=== PATIENT | male | born 1970 | race Caucasian/White ===

== ENCOUNTER → 2017-10-25 11:56 | Outpatient (CLI) | payer OTHER, SELFPAY ==
[2017-10-25 13:56] LABS: Anion Gap 7 (5-15); BUN 9 mg/dL (7-18); BUN/Creat Ratio 7.4 RATIO (10-20); Calcium,Total 8.8 mg/dL (8.5-10.1); Chloride 108 mmol/L (98-107); Cholesterol 217 mg/dL (200); Creatinine, Serum 1.22 mg/dL (0.70-1.30); EST Glomerular Filtration Rate 67 mL/min (>60); Est Glom Filt Rate - Afr Amer 81 mL/min (>60); Glucose 85 mg/dL (74-106); High Density Lipoprotein 40 mg/dL; Potassium 4.1 mmol/L (3.5-5.1); Sodium Level 141 mmol/L (136-145); Triglycerides 131 mg/dL; Very Low Density Lipoprotein 26 mg/dL (5-40)
== END ==
PROVIDERS: Family Provider Family Medicine; PCP Family Medicine; Visit Provider Family Medicine
DX: R07.9 Chest pain, unspecified (principal); Z12.5 Encounter for screening for malignant neoplasm of prostate
CPT/HCPCS: 36415; 80048; 80061; 84153; G0103

== ENCOUNTER 2018-01-28 04:04 | Emergency (ER) | payer OTHER, SELFPAY ==
[2018-01-28 04:05] VITALS: BP 163/121; PULSE 97; RESP 19; TEMP 36.6; O2SAT 100; BMI 29.7
--- NOTE | 2018-01-28 04:16 | EKG12_ITS ---
Test Reason : CP Blood Pressure : / mmHG Vent. Rate : 084 BPM Atrial Rate : 084 BPM P-R Int : 160 ms QRS Dur : 102 ms QT Int : 374 ms P-R-T Axes : 044 056 073 degrees QTc Int : 441 ms Normal sinus rhythm Normal ECG Confirmed by FANTASMA JOYNER MD ([id number]), editor in chief BEVERLY MENDEZ ([id number]) on 02/01/2018 4:16:24 PM Referred By: GARO Confirmed By:FANTASMA JOYNER MD
[2018-01-28 04:18] VITALS: O2SAT 100
--- NOTE | 2018-01-28 04:18 | ED.VISSUMM ---
- ER Visit Summary Date of Service: 01/28/18 Chief Complaint: [] Chest pain History of Present Illness: The patient is a 47 M with chest pain for the last hour woke him up from sleep continuous waxes and wanes stabbing pain in the right chest. He feels that his low back occasionally. Current severity is moderate. No home treatment. Associated with sick intermittent nausea. No previous stress test or cath. No cardiovascular PE or dissection risk factors. He takes no medications. Physical Examination: Vital signs reviewed General: Well-nourished well-developed Head: Normocephalic atraumatic Eyes: Pupils equal round and reactive to light extraocular movements intact ENT: TMs clear no hemotympanum no trauma Neck: Nontender full range of motion Cardiovascular: Regular rate rhythm no murmurs normal S1-S2 Respiratory: No distress clear to auscultation bilaterally chest nontender Abdomen: Soft nontender nondistended normal bowel sounds no masses Back: Nontender no CVA tenderness Extremities: Nontender active range of motion ?4 extremities no trauma Skin: Normal color no trauma Neuro alert oriented cranial nerves II through XII intact normal strength sensation reflexes Test Results: [] Emergency Department Course and Treatment: [] EKG shows sinus 84 no ischemia. Chest x-ray and lab work obtained. Patient given oral aspirin IV Zofran and morphine for his symptoms. On reevaluation his pain is gone. Chest x-ray CT Rozina of the chest and lab work including troponin are negative. Liver function tests lipase negative. This could be gallbladder related however will obtain a CT I do not see any stones but can only see the upper half of the gallbladder. He does not have a PE or dissection. I do not think it is cardiac related. I do not think he needs a second troponin. He will follow-up as an outpatient. He will avoid fatty foods. He will return if he worsens. Treatment Plan: [] Disposition: [] Impression: [] Right lower chest pain This note was generated with [employer] dictation software. It may contain incorrect words, spelling, and punctuation that were not noted in review of the chart prior to signing ED Disposition - Plan for ED Patient: Chief Complaint: Chest Pain Referrals: Michael Garcia MD [Primary Care Provider] -
--- NOTE | 2018-01-28 04:19 | NURSING ---
NO OLD EKG TO OBTAIN
[2018-01-28] MEDS: Aspirin 81 MG TAB.CHEW 324 MG PO (04:22)
[2018-01-28] MEDS: morphine 8 MG/ML Syringe IV (04:23)
[2018-01-28] MEDS: Ondansetron 4 MG/2 ML Vial IV (04:25)
[2018-01-28 04:33] LABS: Absolute Lymphocyte Count 1.42 X10^3/ul (0.83-4.51); Absolute Neutrophil Count 6.4 X10^3/uL (2.0-7.7); Basophil# 0.01 X10^3/uL; Basophil% 0.1 % (0-1); Eosinophil# 0.12 X10^3/uL; Eosinophils% 1.4 % (0-5); Hematocrit 45.8 % (40-54); Hemoglobin 15.5 g/dl (13.0-16.5); Lymphocyte # 1.42 X10^3/ul (4.0); Lymphocyte % 16.6 % (19-41); Mean Corp Hgb Conc 33.8 g/gl (32-36); Mean Corpuscular Hgb 29.9 pg (27.0-32.0); Mean Corpuscular Volume 88.4 fL (80-94); Mean Platelet Vol. 11.5 fl (6.2-12.0); Monocyte# 0.56 X10^3/uL; Monocyte% 6.6 % (0-10); Neutrophil # 6.41 X10^3/uL (2.7-7.7); Neutrophil % 75.1 % (47-70); Platelet Count 178 K/mm3 (150-450); RBC Distribution Width CV 12.4 % (11.6-14.6); RBC Distribution Width SD 39.7 fl (35.1-43.9); Red Blood Count 5.18 M/mm3 (4.6-6.2); White Blood Count 8.5 K/mm3 (4.4-11.0)
--- NOTE | 2018-01-28 04:40 | RAD_ITS ---
STUDY: X-RAY CHEST REASON FOR EXAM: Male, 47 years old. Chest pain TECHNIQUE: Frontal and lateral views of the chest. COMPARISON: None. FINDINGS: The lungs are clear and expanded. There is no demonstrated pleural abnormality. Normal size heart. Normal mediastinum and ryne. Normal visualized pulmonary arteries. Normal visualized aortic arch and descending thoracic aorta. Normal visualized thoracic spine. Normal visualized ribs, clavicles, and shoulders. There is no demonstrated abnormality of the visualized soft tissue structures of the upper abdomen. RAD/Chest PA and Lateral IMPRESSION: Normal x-ray examination of the chest. Electronically Signed: Radha Coburn MD at 5:28 EDT Tel , Service support ,
[2018-01-28 04:45] LABS: AST(SGOT) 27 U/L (15-37); Alanine Aminotransfer ALT/SGPT 35 U/L (16-61); Albumin, Serum 3.9 g/dL (3.2-5.0); Alkaline Phosphatase 93 U/L (45-117); Anion Gap 9 (5-15); BUN 17 mg/dL (7-18); BUN/Creat Ratio 13.1 RATIO (10-20); Bilirubin, Direct 0.09 mg/dL (0.00-0.30); Calcium,Total 9.2 mg/dL (8.5-10.1); Chloride 108 mmol/L (98-107); EST Glomerular Filtration Rate 62 mL/min (>60); Est Glom Filt Rate - Afr Amer 75 mL/min (>60); Estimated Creatinine Clearance 77.68 ml/min; Globulin 4.2 g/dL (2.2-4.2); Glucose 91 mg/dL (74-106); Lipase 145 U/L (73-393); Potassium 3.9 mmol/L (3.5-5.1); Protein, Total 8.1 g/dL (6.4-8.2); Sodium Level 143 mmol/L (136-145)
[2018-01-28 04:50] LABS: POSITIVE COUNT NO; POSITIVE DIFFERENTIAL NO; POSITIVE MORPHOLOGY NO
--- NOTE | 2018-01-28 05:04 | CT_ITS ---
STUDY: CTA CHEST REASON FOR EXAM: Male, 47 years old. CP WOKE UP FROM SLEEP, RADIATES TO BACK, NO OTHER MEDICAL HX RADIATION DOSAGE (If Supplied By Facility): CTDIvol = ( 15.76 ) mGy, DLP = ( 671.16 ) mGycm TECHNIQUE: The examination was performed with the intravenous administration of 100ML ml of Isovue 370 contrast material. Post-processing of the angiographic images was performed, with multiplanar reformation and 3D reconstruction. Individualized dose optimization techniques were used for this CT. COMPARISON: None. FINDINGS: Normal enhancement of the main pulmonary artery and right and left pulmonary arteries. Normal enhancement of the bilateral peripheral pulmonary arteries. There is no demonstrated pulmonary embolism. Normal thoracic aorta and visualized great vessels. There is no demonstrated aortic dissection. Normal heart and pericardium. Normal mediastinum. Normal hilar regions. Normal visualized trachea and bronchi. The lungs are well expanded. Normal pulmonary parenchyma. Normal pleura. Normal chest wall structures. Normal osseous structures. Normal visualized upper abdomen. CT/CTA Chest W/WO Contrast IMPRESSION: Normal CTA chest examination, without a demonstrated pulmonary embolism or arterial dissection. Electronically Signed: Radha Coburn MD at 5:48 EDT Tel , Service support ,
[2018-01-28 05:53] VITALS: BP 134/98; PULSE 75; RESP 18; O2SAT 96
[2018-01-28] MEDS: 0.9% Normal Saline 1,000 ML 1000 ML IV (05:54)
--- NOTE | 2018-01-28 06:03 | DCINST.ED_ITS ---
ED Disposition - Plan for ED Patient: Disposition: Home or Assisted Living Chief Complaint: Chest Pain Instructions: ED Chest Pain NonCardiac Prescriptions: Hydrocodone Bitart/Apap 5-325 [Rocky Comfort 5MG-325MG] 1 - 2 tab PO Q4H PRN PRN 2 Days #10 tab PRN Reason: Pain Ondansetron [Zofran Odt] 8 mg PO Q8H PRN PRN #10 tab PRN Reason: Nausea Referrals: Michael Garcia MD [Primary Care Provider] -
[2018-01-28 06:08] VITALS: BP 141/102; PULSE 80; RESP 16; O2SAT 97; O2SAT 98
== END 2018-01-28 06:11 | disposition home or self-care (01) ==
PROVIDERS: Emergency Provider Emergency Medicine; Family Provider Family Medicine; PCP Family Medicine
DX: R07.9 Chest pain, unspecified (principal); Z87.442 Personal history of urinary calculi
CPT/HCPCS: 71046; 71275; 80048; 80076; 83690; 84484; 85025; 93005; 96374; 96375; 99284; J7030; Q9967; A4216; J2405

== ENCOUNTER 2018-11-29 02:46 | Emergency (ER) | payer OTHER, SELFPAY ==
--- NOTE | 2018-11-29 | CT_ITS ---
HISTORY: FLANK PAIN, bilat EXAMINATION: CT Abdomen And Pelvis W/O Contrast TECHNIQUE: Helically acquired images were obtained of the abdomen and pelvis without oral or IV contrast as per renal stone protocol. A radiation dose optimization technique was used for this scan. IV Contrast dosage and agent: None. Oral contrast: None. COMPARISON: 01/05/2016 FINDINGS: Both kidneys are normal in position. Multiple small calyceal stones at both kidneys without significant change. The largest stone measures 3 mm in diameter at the upper pole of the right kidney. Currently, no ureteral stones and no hydronephrosis or hydroureter. A 2 cm water density cortical cyst, mid pole of the left kidney. Adrenal glands are not enlarged. Lower thorax: Clear. No pleural effusion or pericardial effusion. Normal gallbladder. Limited non-infusion exam. Allowing for this, normal liver, spleen, pancreas, and biliary system. Abdominal aorta is normal in caliber. No ascites or retroperitoneal lymph node enlargement. GI tract: No obstruction. Normal appendix. Pelvis: Mild prostatic enlargement with the prostate measuring 6 cm in transverse dimension and prostate size is mildly increased compared to previous. No free fluid or lymph node enlargement. Urinary bladder is poorly distended. No bladder stones. Bones: No acute osseous abnormality. CT/Abdomen/Pelvis without Cont IMPRESSION: 1. Numerous small calyceal stones within both kidneys without significant change. No current findings of hydronephrosis or obstructive uropathy. 2. Mild prostatic enlargement with increased prostate size compared to the 2016 exam. 3. The urinary bladder is poorly distended and without stones. Individualized dose optimization techniques were used for this CT. at 0428 Reported and signed by: Ady Vanegas MD Electronically Signed: Ady Vanegas, at 4:27 EDT Tel , Service support ,
[2018-11-29 02:47] VITALS: BP 149/107; PULSE 119; RESP 18; TEMP 37.9; O2SAT 99; BMI 28.8
[2018-11-29 02:50] VITALS: BP 149/107; PULSE 118; RESP 15; TEMP 37.9; O2SAT 97
[2018-11-29 03:17] LABS: Mucous, Urine 0 SEEN /hpf (<or=2+); Squamous Epithelial Cells - UA 0 SEEN /hpf (0-5)
[2018-11-29 03:24] LABS: Absolute Neutrophil Count 10.9 X10^3/uL (2.0-7.7); Basophil# 0.02 X10^3/uL; Basophil% 0.2 % (0-1); Color, Urine Brown (Yellow); Eosinophil# 0.06 X10^3/uL; Eosinophils% 0.5 % (0-5); Glucose, Dipstick Normal (Normal); Hematocrit 44.5 % (40-54); Hemoglobin 15.3 g/dl (13.0-16.5); Ketone-Dipstick 5 mg/dl (Negative); Leukocyte Esterase-Dipstick 500 /ul (Negative); Lymphocyte % 5.5 % (19-41); Mean Corp Hgb Conc 34.4 g/gl (32-36); Mean Corpuscular Hgb 29.4 pg (27.0-32.0); Mean Corpuscular Volume 85.4 fL (80-94); Mean Platelet Vol. 11.2 fl (6.2-12.0); Monocyte# 1.13 X10^3/uL; Monocyte% 8.8 % (0-10); Neutrophil # 10.85 X10^3/uL (2.7-7.7); Neutrophil % 84.8 % (47-70); Nitrite-Dipstick Positive (Negative); Occult Blood-Urine 250 /ul (Negative); Platelet Count 176 K/mm3 (150-450); Protein-Dipstick 100 mg/dl (Negative); RBC Distribution Width CV 12.2 % (11.6-14.6); RBC Distribution Width SD 37.7 fl (35.1-43.9); Red Blood Count 5.21 M/mm3 (4.6-6.2); Urine Bilirubin Dipstick Negative (Negative); Urine Clarity Cloudy (Clear); Urine Urobilinogen 1 mg/dl (Normal); White Blood Count 12.8 K/mm3 (4.4-11.0)
[2018-11-29 03:33] LABS: POSITIVE COUNT NO; POSITIVE DIFFERENTIAL NO; POSITIVE MORPHOLOGY NO
[2018-11-29] MEDS: Ondansetron 4 MG/2 ML Vial IV (03:34)
[2018-11-29] MEDS: Ketorolac 30 MG/ML Syringe IV (03:34)
[2018-11-29] MEDS: 0.9% Normal Saline 1,000 ML 1000 ML IV (03:34)
[2018-11-29 03:39] LABS: Bacteria 3+ /hpf (None Seen); Red Blood Cells-Urine 50-100 SEEN /hpf (0-5); White Blood Cells 50-100 SEEN /hpf (0-5)
[2018-11-29 03:49] LABS: Anion Gap 10 (5-15); BUN 12 mg/dL (7-18); BUN/Creat Ratio 10.3 RATIO (10-20); Calcium,Total 8.8 mg/dL (8.5-10.1); Chloride 105 mmol/L (98-107); Creatinine, Serum 1.16 mg/dL (0.70-1.30); EST Glomerular Filtration Rate 71 mL/min (>60); Est Glom Filt Rate - Afr Amer 86 mL/min (>60); Glucose 104 mg/dL (74-106); Potassium 4.1 mmol/L (3.5-5.1); Sodium Level 140 mmol/L (136-145)
[2018-11-29 03:59] LABS: Lactic Acid 1.6 mmol/L (0.4-2.0)
--- NOTE | 2018-11-29 05:04 | ED.DCSUM_ITS ---
- ER Visit Summary Date of Service: 11/29/18 Chief Complaint: Abdominal pain History of Present Illness: The patient is a 48 M who presents with lower abdominal pain. It began about 6 hours ago. It slightly worse on the left than the right. It is dull. He currently rates it as 2 out of 10. He also reports nausea. He complains of dysuria hematuria frequency and urgency. He does have a history of kidney stone. He reports chills. No vomiting. Physical Examination: Heart rate initially 118, temperature 100.3, blood pressure 149/107 Moist mucous membranes Heart regular tachycardia Lungs are clear Abdomen soft nontender nondistended Alert No flank or CVA tenderness Test Results: Labs notable for white blood cell count 12.8. Lactic acid normal. Chemistries normal. UA shows 500 leukocyte esterase, positive nitrates, 50-100 WBCs, 50-100 RBCs, 3+ bacteria. CT of the abdomen and pelvis shows no obstructive uropathy. Emergency Department Course and Treatment: Patient was treated here with IV fluids Toradol and Zofran. He feels much better on reevaluation. Heart rate is 100-105. He does have severe sepsis or septic shock. I do believe he is a good candidate for outpatient treatment at this point with the understanding that he needs to return should he develop any new or worsening symptoms. He was given a dose of IV Cipro here as well as a prescription for the same. Treatment Plan: [] Disposition: Discharge Impression: Cystitis This note was generated with [employer] dictation software. It may contain incorrect words, spelling, and punctuation that were not noted in review of the chart prior to signing ED Disposition - Plan for ED Patient: Referrals: Michael Garcia MD [Primary Care Provider] -
--- NOTE | 2018-11-29 05:04 | ED.DEP ---
ED Disposition - Plan for ED Patient: Instructions: ED UTI Cystitis Male Prescriptions: Ciprofloxacin [Cipro] 500 mg PO BID #14 tab Referrals: Michael Garcia MD [Primary Care Provider] -
[2018-11-29] MEDS: Ciprofloxacin 400 MG/200 ML BAG 200 MG IV (05:19)
[2018-11-29 05:25] VITALS: BP 109/70; PULSE 99; RESP 18; TEMP 38.6; O2SAT 97
[2018-11-29 06:35] VITALS: BP 136/78; PULSE 110; RESP 18; O2SAT 97
== END 2018-11-29 06:36 | disposition home or self-care (01) ==
LOC: ED 03:15
PROVIDERS: Emergency Provider Emergency Medicine; Family Provider Family Medicine; PCP Family Medicine
DX: N30.90 Cystitis, unspecified without hematuria (principal)
CPT/HCPCS: 36415; 74176; 80048; 81001; 83605; 85025; 87040; 87086; 87088; 87186; 96361; 96365; 96375; 99283; A4216; J0744; J2405

== ENCOUNTER 2020-10-12 15:01 | Emergency (ER) | payer OTHER, SELFPAY ==
[2020-10-12 15:02] VITALS: BP 137/100; PULSE 104; RESP 16; TEMP 36.7; O2SAT 95; BMI 29.0
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
--- NOTE | 2020-10-12 15:24 | ED.DEP ---
ED Disposition - Plan for ED Patient: Instructions: ED Body Fluid Exposure Not ... Referrals: Michael Garcia MD [Primary Care Provider] - [facility] [GROUP OF PHYSICIANS] -
[2020-10-12 16:41] LABS: Hepatitis B Surface Antibody Reactive
[2020-10-12 19:12] LABS: HIV - WCH Non-Reactive (Nonreactive); Hepatitis B Surface Antigen Non-Reactive (Nonreactive); Hepatitis C Antibody Non-Reactive (Nonreactive)
== END 2020-10-12 15:59 | disposition home or self-care (01) ==
LOC: ED 15:36
PROVIDERS: Emergency Provider Emergency Medicine; PCP Family Medicine
DX: Z77.21 Contact with and (suspected) exposure to potentially hazardous body fluids (principal)
CPT/HCPCS: 36415; 86703; 86706; 86803; 87340; 99284

== ENCOUNTER 2020-11-24 11:45 | Emergency (ER) | payer OTHER, SELFPAY ==
[2020-11-24 11:45] VITALS: BP 147/107; PULSE 104; RESP 18; TEMP 36.1; O2SAT 97; BMI 30.2
[2020-11-24] MEDS: Diphth,Pertuss(Acell),Tet Vac 0.5 ML Vial IM (13:49)
--- NOTE | 2020-11-24 14:17 | ED.VIS.GEN ---
History of Present Illness Chief Complaint: Laceration Narrative: Patient presents with a scalp laceration. He brushed against a nail sticking out. He has no headache other than localized scalp pain. No loss of consciousness no nausea or vomiting no other injuries. Past medical history: Noncontributory Medications: Reviewed Social history: Noncontributory Review of systems: General: Denies: Loss of consciousness Eyes: Denies: Visual changes - bilaterally Head: Scalp laceration ENT: Facial injury Skin: Laceration as above Neurological: No loss of consciousness no focal weakness Hematologic: Denies: Easy bruising, Easy bleeding Physical exam General: Patient does not appear in any distress Head: Normocephalic, 10 centimeter right-sided scalp laceration Eyes: Conjunctiva not pale ENT: Facial injury Neck: Supple, Nontender, No lymphadenopathy no C-spine tenderness Skin: Laceration as above Neurological: Alert, Normal Strength, Normal Sensation Psychological: Normal affect Past Medical History - Allergies and Home Meds Allergies/Adverse Reactions: Allergies No Known Allergies Allergy (Verified 11/24/20 11:47) Primary Care Physician: Michael Garcia MD [Primary Care Provider] - Smoking Status: Never smoker Physical Exam Vital Signs/Narrative: Vital Signs Temp Pulse Resp BP Pulse Ox 11/24/20 11:45 97.0 F L 104 H 18 147/107 H 97 Diagnostic/Tx/Re-eval - Medical Decision Making Scalp was stapled. Tetanus was updated. Patient does not meet criteria for imaging. I will discharge in stable condition. Procedures - Lacerations No standard instances Length: 3.94 in Depth: Sub Q Shape: Linear Prep: Sterile Conditions, Shure-Clens Comment: A total of 11 yadi were used. You Shur-Clens to clean. No anesthesia was used. ED Disposition - Plan for ED Patient: Disposition: Home or Assisted Living Instructions: ED Laceration: All Closures Referrals: Michael Garcia MD [Primary Care Provider] - 10 Day for suture removal
[2020-11-24 15:10] VITALS: PULSE 68; RESP 17; O2SAT 96
== END 2020-11-24 15:12 | disposition home or self-care (01) ==
PROVIDERS: Emergency Provider Emergency Medicine; PCP Family Medicine
DX: S01.01XA Laceration without foreign body of scalp, initial encounter (principal); X58.XXXA Exposure to other specified factors, initial encounter
CPT/HCPCS: 90715; 96372; 99282

== ENCOUNTER → 2020-12-11 16:14 | Outpatient (CLI) | payer OTHER, SELFPAY ==
[2020-11-24 11:45] VITALS: BMI 30.2
--- NOTE | 2020-12-11 16:18 | RAD_ITS ---
STUDY: X-RAY - ABDOMEN/PELVIS REASON FOR EXAM: Male, 50 years old. Kidney stones. Right flank pain for several days. TECHNIQUE: Two AP supine views of the abdomen and pelvis. COMPARISON: None. FINDINGS: Normal visualized lung bases. There is diffuse gaseous distention of colon and small bowel loops suggesting ileus. There is no evidence of obstruction. There is no demonstrated free abdominal air. The visualized liver, spleen and kidneys are grossly normal in size and morphology. There is no visualized renal calculi or other suspicious calcifications. Normal soft tissue structures. Normal visualized osseous structures. RAD/Abdomen Single View IMPRESSION: Question ileus. There is no visualized renal or ureteral calculi. Electronically Signed: Gianni Smith DO at 16:55 EDT Tel [phone], Service support ,
[2020-12-11 16:33] LABS: Bacteria 0 SEEN /hpf (None Seen); Mucous, Urine 0 SEEN /hpf (<or=2+); Red Blood Cells-Urine 0 SEEN /hpf (0-5); Squamous Epithelial Cells - UA 0 SEEN /hpf (0-5); White Blood Cells 0 SEEN /hpf (0-5)
[2020-12-11 17:40] LABS: Color, Urine Yellow (Yellow); Glucose, Dipstick Normal (Normal); Ketone-Dipstick Negative (Negative); Leukocyte Esterase-Dipstick Negative /ul (Negative); Nitrite-Dipstick Negative (Negative); Occult Blood-Urine 50 /ul (Negative); Protein-Dipstick Negative (Negative); Urine Bilirubin Dipstick Negative (Negative); Urine Clarity Clear (Clear); Urine Urobilinogen Normal (Normal)
== END ==
LOC: MTLAB 16:16 → MTRAD 16:17
PROVIDERS: PCP Family Medicine; Referring Provider Family Medicine; Visit Provider Family Medicine
DX: N20.0 Calculus of kidney (principal)
CPT/HCPCS: 74018; 81001; 87086

== ENCOUNTER 2021-01-13 06:12 | Day surgery (SDC) | payer OTHER, SELFPAY ==
[2021-01-13] VITALS (7 sets, daily range): BP systolic 111–125; BP diastolic 79–89; PULSE 70–86; RESP 14–16; TEMP 36.1–36.3; O2SAT 95–100; BMI 29.5
--- NOTE | 2021-01-13 06:43 | H&P.OPEN ---
HPI - General HPI Narrative KEYLA VERA, is a 50 M who presents for screening colonoscopy. Patient reports he is never had a colonoscopy in the past. He denies any abdominal pain or blood in his stool. He has no family history of colon cancer. He is on no blood thinners. [facility] Medical History (Updated 01/13/21 @ 06:[address] Horacio Hawkins MD) Alcohol use Kidney stones Non-smoker Wears glasses Home Medications NK 01/06/21 [History Last Taken Unknown] Allergy/AdvReac Type Severity Reaction Status Date / Time No Known Allergies Allergy Verified 01/06/21 11:55 Surgical History (Updated 01/06/21 @ 12:02 by Rashmi Macias) Hx of arthroscopy of right knee Social History Smoking Status: Never smoker Past Medical/Surgical History Planned Operation Planned Operative Procedure/s: COLONOSCOPY Previous Hospitalizations/Surgeries HX Hospitalizations: No Any Problems With Anesthesia: No You/Your Family Experience Fever (Hyperthermia) With Anes: No Cholinesterase deficiency: No Cardiovascular Hx Heart Attack: No Hx Hypertension: No Respiratory Hx Sleep Apnea: No Hx Respiratory Tract Infection/Cold (presently): No Do You Snore Loudly (louder than talking or can be heard): Yes Do You Often Feel Tired/ Fatigued/ Sleepy Dring Daytime?: No Has Anyone Observed You Stop Breathing During Sleep?: No Result (for STOP score): Negative Smoking Status: Never smoker Gastrointestinal Hx Gastroesophageal Reflux: No Special diet followed at home: Yes Neurological Does patient have nerve stimulator: No Blood Disorder Hx High Cholesterol: No Hx Cirrhosis: No Psycho/Social Hx Alcohol Use: Yes Allergies No Known Allergies Allergy (Verified 01/06/21 11:55) Discharge Is Pt Admitted From a Senior Care, or a Retirement: No After D/C, Where Do you Plan to Go: Return Home Vital Signs Vital Signs Vital Signs: 01/13/21 06:38 01/13/21 06:40 Temperature 97.0 F L Temperature Source Temporal Pulse Rate 84 Respiratory Rate 16 Respiratory Pattern Normal Blood Pressure 112/89 H Blood Pressure Mean 96 Blood Pressure Source Monitor Blood Pressure Position Semi-Fowlers Blood Pressure Location Left Arm Pulse Ox 96 Oxygen Delivery Method Room Air Weight Weight: 223 lb 5.252 oz Body Mass Index (BMI) 29.5 Physical Exam Const alert and oriented x3 Resp normal respiratory effort and normal air movement Cardio regular rate and regular rhythm GI soft to palpation, non-tender and non-distended Assessment & Plan Assessment/Plan (1) Screen for colon cancer: PLAN: I explained endoscopy in detail to the patient. I explained the risks including but not limited to stroke or heart attack with anesthesia, perforation of the GI tract, bleeding, infection. I explained that any of these could necessitate further emergency surgery. The patient understands and all questions were answered sufficiently. The patient wishes to proceed with procedure. Horacio Hawkins MD Pager: [facility] [address] [place] [address], [address] [place] [address] Office: Surgery Risks - Colonoscopy Risks Include but are not Limited To: Risks include but are not limited to: Bleeding, perforation requiring further surgery, inability to complete colonoscopy requiring barium enema.
[2021-01-13] MEDS: Lactated Ringers 1,000 ML 100 ML IV (07:00)
--- NOTE | 2021-01-16 15:09 | OP.CCLET_ITS ---
01/13/2021 Michael Garcia [address] [place] [address] Re : Colonoscopy procedure for Chandrakant Bell Dear Dr. Garcia This procedure was performed on Wednesday, January 13, 2021. My impressions and recommendations are as follows: Impressions : - The entire examined colon is normal on direct and retroflexion views. - No specimens collected. Recommendations : - Discharge patient to home. - Resume previous diet. - Continue present medications. - Repeat colonoscopy in 10 years for screening purposes. My findings are described in the full procedure note, which is enclosed. If I can be of further assistance, please feel free to contact me at Doctor phone number(s): , Work: . Sincerely, Horacio Hawkins MD 01/13/2021 7:45:04 AM This report has been signed electronically.
--- NOTE | 2021-01-16 15:09 | OP.COLON_ITS ---
Patient Name: Chandrakant Bell Procedure Date: 01/13/2021 7:04 AM Date of : 1970 Age: 50 Procedure: Colonoscopy Indications: Screening for colorectal malignant neoplasm Providers: Horacio Hawkins MD Referring MD: Michael Garcia Medicines: Monitored Anesthesia Care Patient Profile: This is a 50 year old male. Refer to note in patient chart for documentation of history and physical. Last Colonoscopy: none. The patient's first colonoscopy is today. Complications: No immediate complications. Procedure: Pre-Anesthesia Assessment: - Prior to the procedure, a History and Physical was performed, and patient medications and allergies were reviewed. The patient's tolerance of previous anesthesia was also reviewed. The risks and benefits of the procedure and the sedation options and risks were discussed with the patient. All questions were answered, and informed consent was obtained. Prior Anticoagulants: The patient has taken no previous anticoagulant or antiplatelet agents. After reviewing the risks and benefits, the patient was deemed in satisfactory condition to undergo the procedure. After I obtained informed consent, the scope was passed under direct vision. Throughout the procedure, the patient's blood pressure, pulse, and oxygen saturations were monitored continuously. The colonoscope was introduced through the anus and advanced to the cecum, identified by appendiceal orifice and ileocecal valve. The colonoscopy was performed without difficulty. The patient tolerated the procedure well. The quality of the bowel preparation was good. Scope In: 7:21:17 AM Scope Withdrawal Time 0 hours 6 minutes 9 seconds Scope Out: 7:32:00 AM Total Procedure Duration Time 0 hours 10 minutes 43 seconds Findings: The entire examined colon appeared normal on direct and retroflexion views. Impression: - The entire examined colon is normal on direct and retroflexion views. - No specimens collected. Recommendation: - Discharge patient to home. - Resume previous diet. - Continue present medications. - Repeat colonoscopy in 10 years for screening purposes. Procedure Code(s): --- Professional --- 18065, Colonoscopy, flexible; diagnostic, including collection of specimen(s) by brushing or washing, when performed (separate procedure) Diagnosis Code(s): --- Professional --- Z12.11, Encounter for screening for malignant neoplasm of colon CPT copyright 2017 [employer]. All rights reserved. The codes documented in this report are preliminary and upon detail sergeant review may be revised to meet current compliance requirements. Horacio Hawkins MD 01/13/2021 7:45:04 AM This report has been signed electronically. Number of Addenda: 0 Note Initiated On: 01/13/2021 7:04 AM
== END 2021-01-13 08:26 ==
LOC: EN 06:14 → AC 06:15
PROVIDERS: PCP Family Medicine; Referring Provider Family Medicine; Visit Provider Surgery
PROC: 0DJD8ZZ Inspection of Lower Intestinal Tract, Via Natural or Artificial Opening Endoscopic (ICD-10-PCS; CPT 45378; principal; 2021-01-13 07:25)
DX: Z12.11 Encounter for screening for malignant neoplasm of colon (principal)
CPT/HCPCS: 45378; 87426; C9803; J7120; J2405

== ENCOUNTER → 2021-03-31 12:00 | Outpatient (CLI) | payer OTHER, SELFPAY ==
[2021-01-13 06:40] VITALS: BMI 29.5
--- NOTE | 2021-03-31 12:10 | RAD_ITS ---
CLINICAL HISTORY: Male, 50 years old. Right hip sprain. PROCEDURE: ARTHROGRAM - RIGHT HIP CONSENT: The procedure as well as the benefits and possible complications including bleeding and infection were explained to the patient. Informed consent was obtained. FLUOROSCOPY TIME (if supplied): (42 seconds) minutes/seconds Injection Information: 10 cc of diluted Dotarem Number of images obtained: 1 TECHNIQUE: (All elements of maximal sterile barrier technique followed, including US elements as applicable) The patient was in the supine position. The overlying skin was prepped and draped in the usual sterile fashion. Following local anesthetic application and under direct fluoroscopic guidance, a 22-gauge spinal needle was placed into the hip joint. 2 cc of ISOVUE-300 was injected for confirmation. Following this, 10 cc of dilute MRI contrast was injected for further evaluation. The patient tolerated the procedure well. RAD/Arthrogram Hip w/ MRI IMPRESSION: Successful right hip arthrogram for MRI examination. Electronically Signed: Navjot Hernandes MD at 13:04 EDT , Service support ,
--- NOTE | 2021-03-31 12:15 | MRI_ITS ---
STUDY: MRI ARTHROGRAM OF THE RIGHT HIP REASON FOR EXAM: Male, 50 years old. HIP SPRAIN TECHNIQUE: Standardized fat and water weighted pulse sequences were obtained in all 3 orthogonal planes. Intra-articular contrast injection was performed by the on-site physician COMPARISON: Right hip arthrogram dated March 31, 2021 FINDINGS: The right hip joint space is distended and opacified with intra-articular contrast. Minor injection related edema seen in the iliopsoas muscle. No visualized bone marrow edema or fracture. No evidence of osteonecrosis is seen. Normal hip joint without articular joint space narrowing. Normal acetabulum. A small oblique tear is present in the far anterior and superior aspect of the acetabular labrum see image #05/04 series 7 and 03/03 series 2 and 02/09 series 2. Normal remaining aspects of the right acetabular labrum. No demonstrated attachment. Normal femoral head. Normal femoral neck and intratrochanteric region. Normal gluteus minimus, medius and iliopsoas tendons and distal insertions. There is no trochanteric, iliopsoas or iliopectineal bursitis. Normal superior and inferior pubic rami. Normal pubic symphysis. Normal ischial tuberosity. Normal origin of the hamstring tendons. Normal visualized iliac wing, sacroiliac joint, and sacral ala. Normal visualized soft tissue structures of the pelvis. MRI/Lower Ext/Jt Only/W Contrast IMPRESSION: 1. A small oblique tear is present in the far anterior and superior aspect of the acetabular labrum see image #9/20 series 7 and 03/03 series 2 and 02/09 series 2. Normal remaining aspects of the right acetabular labrum. No demonstrated attachment. Electronically Signed: Mingo Smith MD at 23:38 EDT , Service support ,
[2021-03-31] MEDS: Lidocaine 2% (5ml sdv) 5 ML VIAL.MPF (12:40)
== END ==
PROVIDERS: PCP Family Medicine; Referring Provider Physician Assistant Surgical; Visit Provider Physician Assistant Surgical
DX: S73.191A Other sprain of right hip, initial encounter (principal)
CPT/HCPCS: 27093; 73722; 77002; Q9967

== ENCOUNTER 2021-06-10 07:38 | Emergency (ER) | payer OTHER, SELFPAY ==
[2021-06-10 07:38] VITALS: BP 124/88; PULSE 114; RESP 16; TEMP 36.3; O2SAT 95; BMI 29.0
--- NOTE | 2021-06-10 07:51 | EDS_ITS ---
HPI History of Present Illness Chief Complaint: Male Pain/Injury Informant: patient Pain Onset: Days (3) Context: Gradual Onset Timing: Waxes and wanes Worsened by: Coughing Relieved by: Nothing Urinary Symptoms Genitourinary Symptoms: Dribbling Related History Enlarged Prostate: No Prostate Infection: No Prostate Cancer: No Narrative Narrative: Patient presented with difficulty urinating that has been waxing and waning over the past 3 days. Patient states he has only been able to urinate small amounts. Patient admits to some sharp pain in the suprapubic area when he coughs. Patient denies any dysuria or hematuria. Patient states she went to an urgent care a couple days ago and they noted some blood and protein in his urine at that time. Patient denies any fevers or chills. Patient denies any back pain. Patient does admit to some abdominal pain, nausea, and vomiting. [facility] Medical History Alcohol use Kidney stones Non-smoker Wears glasses Home Medications phenazopyridine [Pyridium] 200 mg PO TID #10 tab 06/10/21 [Rx Last Taken Unknown] tamsulosin 0.4 mg PO DAILY #7 capsule 06/10/21 [Rx Last Taken Unknown] Allergy/AdvReac Type Severity Reaction Status Date / Time No Known Allergies Allergy Verified 01/06/21 11:55 Surgical History Hx of arthroscopy of right knee Social History Smoking Status: Never smoker ROS ROS ED Constitutional Constitutional ED: Denies chills or fever(s) Eyes Eyes: Denies blurry vision or change in vision ENT ENT ED: Denies rhinorrhea or sore throat Cardiovascular Cardiovascular: Denies chest pain or palpitations Respiratory/Chest Respiratory/Chest: Denies cough or dyspnea Gastrointestinal Gastrointestinal: Reports abdominal pain, nausea and vomiting Genitourinary Genitourinary ED: Denies dysuria or hematuria Musculoskeletal Musculoskeletal: Denies back pain or neck pain Integumentary Denies abscess or rash Neurologic Neurologic: Reports headache(s); Denies paresthesias or weakness Allergic/Immunologic Allergic/Immunologic ED: Denies mouth swelling or urticaria EXAM Physical Exam Const Vital Signs: 10/27/21 07:38 Temperature 97.3 F L Temperature Source Temporal Pulse Rate 114 H Respiratory Rate 16 Blood Pressure 124/88 H Blood Pressure Mean 100 Pulse Ox 95 Oxygen Delivery Method Room Air Positive well nourished and well developed General Appearance ED: well developed HEENT Reports moist mucous membranes Neck supple and no JVD Resp normal respiratory effort and clear to auscultation bilaterally Cardio regular rate, regular rhythm and no murmurs GI normal to inspection, nondistended, normoactive bowel sounds and non-distended Palpation: soft and tender suprapubic (Mild); Negative for guarding Extremity normal to inspection General Extremety ED: Negative for edema or tenderness General Extremity: Negative for edema Neuro oriented x3, CN's II-XII intact bilaterally and no sensory deficits noted Sensorium / Orientation: alert Motor Exam: strength 5/5 throughout Psych mental status grossly normal Skin no rashes or lesions noted MDM MDM MDM Narrative Medical decision making narrative: Bladder scan was performed. There was only 95 mL of urine in the bladder. CBC and comprehensive metabolic profile were obtained. There is a slight leukocytosis of 11.3. BUN was 20 and creatinine was 1.45. Urinalysis was obtained. There is no evidence of urinary tract infection. CT scan of the abdomen and pelvis was obtained. There is some enlargement of the prostate and thickening of the bladder wall. There are bilateral renal calculi but no obstruction. This was interpreted by the radiologist and reviewed by myself. Patient was given a liter of IV fluids. Patient was given prescriptions for Pyridium and Flomax. Patient was instructed to follow-up with his primary care physician in 3 to 5 days. Patient was also given a referral for urology. Patient understands and is agreeable with the plan. All questions were answered. Lab Data Attestation: I reviewed the patient's lab results. Labs: Laboratory Results - last 24 hr 06/10/21 06/10/21 06/10/21 08:00 08:00 08:45 WBC 11.3 H RBC 4.62 Hgb 13.8 Hct 41.1 MCV 89.0 MCH 29.9 MCHC 33.6 RDW Std Deviation 40.6 RDW Coeff of Juan 12.5 Plt Count 149 L MPV 11.0 Immature Gran % (Auto) 0.500 Neut % (Auto) 83.8 H Lymph % (Auto) 4.3 L Sutter % (Auto) 9.9 Eos % (Auto) 1.2 Baso % (Auto) 0.3 Absolute Neuts (auto) 9.5 H Absolute Lymphs (auto) 0.48 L Nucleated RBC % 0 Sodium 137 Potassium 3.8 Chloride 105 Carbon Dioxide 24.0 Anion Gap 8 BUN 20 H Creatinine 1.45 H Estim Creat Clear Calc 66.58 Est GFR (MDRD) Af Amer 65 Est GFR (MDRD) Non-Af 54 L BUN/Creatinine Ratio 13.8 Glucose 103 Calcium 9.5 Total Bilirubin 0.60 AST 15 ALT 22 Alkaline Phosphatase 104 Total Protein 7.6 Albumin 2.7 L Globulin 4.9 H Albumin/Globulin Ratio 0.6 L Urine Color Yellow Urine Clarity Clear Urine pH 6.0 Ur Specific [place] 1.020 Urine Protein 100 H Urine Glucose (UA) Normal Urine Ketones 50 H Urine Occult Blood 250 H Urine Nitrite Negative Urine Bilirubin 3 H Urine Urobilinogen 4 H Ur Leukocyte Esterase 25 H Urine RBC 0 SEEN Urine WBC 0-5 SEEN Ur Squamous Epith Cells 0 SEEN Urine Bacteria 0 SEEN Fine Granular Casts 0-5 SEEN Urine Mucus 2+ Radiography Diagnostic Testing: Clinical Impression(s) from Imaging Studies Abdomen/Pelvis CT 06/10/21 07:57 IMPRESSION: Mild degree of bibasilar atelectasis. Nonobstructive bilateral intrarenal calculi. Stable cyst in the left kidney. Sigmoid diverticula. Prostatic enlargement with indentation of the bladder base. Enlargement of the seminal vesicles bilaterally. Diffuse bladder wall thickening. Electronically Signed: Navjot Hernandes MD at 8:49 EDT , Service support , Discharge Plan Triage Chief Complaint: Male Pain/Injury ED Provider: Nathan Fregoso Dx/Rx/DC Orders Clinical Impression: Dysuria Instructions: ED Dysuria, Uncertain Cause (Adult) Prescriptions: New phenazopyridine [Pyridium] 200 MG tablet 200 mg PO TID Qty: 10 RF: 0 tamsulosin [tamsulosin] 0.4 MG capsule 0.4 mg PO DAILY Qty: 7 RF: 0 Primary Care Provider: Michael Garcia Referrals: Michael Garcia MD [Primary Care Provider] - 3-5 Days Kerwin,Dillon, MD [STAFF PHYSICIAN] - 1 Week if not improving Disposition Disposition: Home, Self Care
--- NOTE | 2021-06-10 07:57 | CT_ITS ---
STUDY: CT ABDOMEN AND PELVIS WITHOUT CONTRAST REASON FOR EXAM: Male, 51 years old. 3 day history of dysuria and lower pelvic pain. RADIATION DOSAGE (If Supplied By Facility): CTDIvol = ( 12.90 ) mGy, DLP = ( 728.58 ) mGycm TECHNIQUE: Transaxial images were obtained from the dome of the diaphragm to the symphysis pubis without oral contrast, and without intravenous contrast. Sagittal and coronal images were reconstructed. Individualized dose optimization techniques were used for this CT. COMPARISON: Comparison is made with prior study 11/29/2018. FINDINGS: Minimal degree of increased markings at the lung bases suggestive of atelectasis. The visualized portions of the heart are within normal limits. Normal liver. Normal gallbladder and extrahepatic biliary system. Normal spleen. Normal pancreas. Normal bilateral adrenal glands. Tiny right nonobstructive intrarenal calculi. Tiny nonobstructive left intrarenal calculi. There is a 1.7 cm cyst in the lateral midportion of the left kidney. Normal visualized stomach. Normal small intestine. There are scattered colonic diverticula consistent with diverticulosis. The appendix is visualized and appears normal. Normal abdominal aorta. Normal inferior vena cava. Normal retroperitoneum. Diffuse bladder wall thickening. There is enlargement of the prostate gland. It measures 5.1 cm x 6.2 cm. This causes indentation at the bladder base. There is prominence of the seminal vesicles bilaterally. There is a small umbilical hernia containing fat. Disc space narrowing and degeneration at the L5-S1 level. CT/Abdomen/Pelvis without Cont IMPRESSION: Mild degree of bibasilar atelectasis. Nonobstructive bilateral intrarenal calculi. Stable cyst in the left kidney. Sigmoid diverticula. Prostatic enlargement with indentation of the bladder base. Enlargement of the seminal vesicles bilaterally. Diffuse bladder wall thickening. Electronically Signed: Navjot Hernandes MD at 8:49 EDT , Service support ,
[2021-06-10 08:29] LABS: ALB/GLOB Ratio 0.6 RATIO (0.9-2.4); AST(SGOT) 15 U/L (15-37); Alanine Aminotransfer ALT/SGPT 22 U/L (16-61); Albumin, Serum 2.7 g/dL (3.2-5.0); Alkaline Phosphatase 104 U/L (45-117); Anion Gap 8 (5-15); BUN 20 mg/dL (7-18); BUN/Creat Ratio 13.8 RATIO (10-20); Calcium,Total 9.5 mg/dL (8.5-10.1); Chloride 105 mmol/L (98-107); Creatinine, Serum 1.45 mg/dL (0.70-1.30); EST Glomerular Filtration Rate 54 mL/min (>60); Est Glom Filt Rate - Afr Amer 65 mL/min (>60); Estimated Creatinine Clearance 66.58 ml/min; Globulin 4.9 g/dL (2.2-4.2); Glucose 103 mg/dL (74-106); Potassium 3.8 mmol/L (3.5-5.1); Protein, Total 7.6 g/dL (6.4-8.2); Sodium Level 137 mmol/L (136-145)
[2021-06-10 08:39] LABS: Absolute Lymphocyte Count 0.48 X10^3/uL (0.83-4.51); Absolute Neutrophil Count 9.5 X10^3/uL (2.0-7.7); Basophil# 0.03 X10^3/uL; Basophil% 0.3 % (0-1); Eosinophil# 0.14 X10^3/uL; Eosinophils% 1.2 % (0-5); Hematocrit 41.1 % (40-54); Hemoglobin 13.8 g/dL (13.0-16.5); Lymphocyte # 0.48 X10^3/ul (0.83-4.51); Lymphocyte % 4.3 % (19-41); Mean Corp Hgb Conc 33.6 g/dL (32-36); Mean Corpuscular Hgb 29.9 pg (27.0-32.0); Monocyte# 1.12 X10^3/uL; Monocyte% 9.9 % (0-10); NRBC Flagged by Analyzer 0 % (0-5); Neutrophil # 9.46 X10^3/uL (2.7-7.7); Neutrophil % 83.8 % (47-70); POSITIVE DIFFERENTIAL YES; Platelet Count 149 K/mm3 (150-450); RBC Distribution Width CV 12.5 % (11.6-14.6); RBC Distribution Width SD 40.6 fl (35.1-43.9); Red Blood Count 4.62 M/mm3 (4.6-6.2); White Blood Count 11.3 K/mm3 (4.4-11.0)
[2021-06-10 08:42] LABS: Differential Indicated SCAN CRITERIA MET
[2021-06-10 08:45] LABS: Bacteria 0 SEEN /hpf (None Seen); Red Blood Cells-Urine 0 SEEN /hpf (0-5); Squamous Epithelial Cells - UA 0 SEEN /hpf (0-5)
[2021-06-10] MEDS: 0.9% Normal Saline 1,000 ML 999 ML IV (08:45)
[2021-06-10 08:51] LABS: Color, Urine Yellow (Yellow); Glucose, Dipstick Normal (Normal); Ketone-Dipstick 50 mg/dl (Negative); Leukocyte Esterase-Dipstick 25 /ul (Negative); Nitrite-Dipstick Negative (Negative); Occult Blood-Urine 250 /ul (Negative); Protein-Dipstick 100 mg/dl (Negative); Urine Clarity Clear (Clear); Urine Urobilinogen 4 mg/dl (Normal)
[2021-06-10 08:52] LABS: Urine Bilirubin Dipstick 3 mg/dL (Negative)
[2021-06-10 08:56] LABS: Fine Granular Cast- Urine 0-5 SEEN /lpf (0-5); White Blood Cells 0-5 SEEN /hpf (0-5)
[2021-06-10 08:57] LABS: Mucous, Urine 2+ /hpf (<or=2+)
[2021-06-10 10:08] VITALS: BP 131/92; PULSE 96
== END 2021-06-10 10:14 | disposition home or self-care (01) ==
PROVIDERS: Emergency Provider Emergency Medicine; PCP Family Medicine
DX: R30.0 Dysuria (principal)
CPT/HCPCS: 74176; 80053; 81001; 85025; 99283; J7030

== ENCOUNTER → 2021-06-23 08:38 | Outpatient (CLI) | payer OTHER, SELFPAY | PROVIDERS: PCP Family Medicine; Referring Provider Family Medicine; Visit Provider Family Medicine | DX: R30.0 Dysuria (principal) | CPT/HCPCS: 87086 ==

== ENCOUNTER → 2021-12-07 | Outpatient (CLI) | payer OTHER, SELFPAY ==
[2021-12-07 15:24] LABS: Anion Gap 3 (5-15); BUN 14 mg/dL (7-18); Calcium,Total 8.7 mg/dL (8.5-10.1); Chloride 109 mmol/L (98-107); Cholesterol 214 mg/dL (200); Creatinine, Serum 1.27 mg/dL (0.70-1.30); EST Glomerular Filtration Rate 63 mL/min (>60); Est Glom Filt Rate - Afr Amer 76 mL/min (>60); Glucose 97 mg/dL (74-106); High Density Lipoprotein 42 mg/dL; PSA,Total - Annual Screen 7.93 ng/mL (0.00-4.00); Potassium 4.7 mmol/L (3.5-5.1); Sodium Level 138 mmol/L (136-145); Triglycerides 86 mg/dL; Very Low Density Lipoprotein 17 mg/dL (5-40)
== END | disposition home or self-care (01) ==
LOC: MFPLAB 10:31
PROVIDERS: PCP Family Medicine; Visit Provider Family Medicine
DX: Z13.1 Encounter for screening for diabetes mellitus (principal); N40.0 Benign prostatic hyperplasia without lower urinary tract symptoms; Z13.220 Encounter for screening for lipoid disorders
CPT/HCPCS: 36415; 80048; 80061; 84153; G0103

== ENCOUNTER → 2022-06-22 | Outpatient (CLI) | payer OTHER, SELFPAY ==
[2022-06-23 16:46] LABS: PSA, Free 0.77 ng/mL; PSA, Free % 29.4 % (.)
== END | disposition home or self-care (01) ==
LOC: LAB 08:02
PROVIDERS: PCP Family Medicine; Visit Provider Registered Nurse
DX: R97.20 Elevated prostate specific antigen [PSA] (principal)
CPT/HCPCS: 36415; 84153; 84154

== ENCOUNTER → 2023-08-05 | Outpatient (CLI) | payer OTHER, SELFPAY ==
[2023-08-05 15:31] LABS: Troponin-I HS 5 pg/mL (3.0-78.0)
== END | disposition home or self-care (01) ==
PROVIDERS: PCP Family Medicine; Referring Provider Family Medicine; Visit Provider Family Medicine
DX: R07.9 Chest pain, unspecified (principal)
CPT/HCPCS: 36415; 84484

== ENCOUNTER → 2025-03-14 | Outpatient (CLI) | payer OTHER, SELFPAY ==
[2025-03-14 17:37] LABS: PSA,Total - Annual Screen 2.82 ng/mL (0.02-4.00)
== END | disposition home or self-care (01) ==
LOC: LAB 13:33
PROVIDERS: PCP Family Medicine; Referring Provider Urology; Visit Provider Urology
DX: Z12.5 Encounter for screening for malignant neoplasm of prostate (principal)
CPT/HCPCS: 36415; 84153; G0103